=== PATIENT | female | born 2000 | race Caucasian/White ===

== ENCOUNTER 2024-06-28 06:59 | Day surgery (SDC) | payer BC ==
[2024-06-22 17:33] VITALS: BMI 43.2
[~2024-06-28 06:59] MED LIST: SODIUM CHLORIDE 0.9% 1,000 ML IV SCH
[2024-06-28 07:39] VITALS: BP 142/86; PULSE 82; RESP 18; TEMP 98.4
[2024-06-28] MEDS: IV FLUID CONTINUATION 1,000 ML IV ONE (07:39)
--- NOTE | 2024-06-29 12:13 | P.EPPROC ---
- EP Procedure Note Electrophysiology Procedure Note: Diagnosis Recurrent presyncope Twelve-lead EKG shows sinus rhythm normal MO narrow QRS normal ST segments normal QT interval No delta waves no epsilon waves Tilt table test per protocol Baseline blood pressure 129/82 mmHg baseline heart rate 66 beats a minute Patient was tilted up Angle of 70 degrees per protocol She immediately complained that her "brain touched her skull" and she was dizzy and nauseous. Her blood pressure was 132/84 mmHg and her heart rate was 84 beats a minute There was no evidence for neurocardiogenic syncope No evidence for orthostatic intolerance or POTS Patient had recurrent episodes of dizziness through the stress Impression Normal twelve-lead EKG No evidence for neurocardiogenic syncope No evidence for orthostatic intolerance of POTS Variety of symptoms as described above
== END 2024-06-28 09:51 | disposition home or self-care (01) ==
LOC: CATHEP 06:59
PROVIDERS: ATTEND Internal Medicine Clinical Cardiac Electrophysiology
DX: R55 Syncope and collapse
CPT/HCPCS: 81025; 93660